=== PATIENT | male | born 1960 | race Caucasian/White ===

== ENCOUNTER 2019-12-21 15:48 | Emergency (ER) | payer BC ==
[2019-12-21 16:07] VITALS: TEMP 97
[2019-12-21] MEDS ORDERED: CHLORHEXIDINE GLUCONATE 4 % 15 ML UD TOP ONE (16:39)
[2019-12-21 16:42] VITALS: O2SAT 98
[2019-12-21] MEDS ORDERED: TETANUS,DIPHTHERIA,PERTUSSIS 1 EA SYG IM ONE (17:09)
--- NOTE | 2019-12-21 17:15 | ED.PDOC ---
History of Present Illness - General Chief Complaint: Laceration Stated Complaint: thumb laceration Time Seen by Provider: 12/21/19 17:12 Source: patient - History of Present Illness Initial Comments: 59-year-old male who presents with chief complaint of left thumb laceration following injury just prior to arrival. Patient states he was driving a metal post when he accidentally struck his thumb sustaining a flap-like laceration to the palmar aspect of the left thumb. He reports a superficial wound with minimal bleeding to the area. Reports 3/10 severity sharp pain without radiation to the area, worse with palpation and movement of the thumb, no medications taken for relief. He is unsure of the date of his last tetanus immunization. Denies weakness/numbness, swelling, color change. Denies any other injuries. Allergies/Adverse Reactions: Allergies NO KNOWN ALLERGY Allergy (Verified 12/21/19 16:07) Home Medications: Ambulatory Orders Cephalexin Monohydrate [Keflex] 500 mg PO BID 5 Days #10 cap 12/21/19 Review of Systems - Review of Systems Review of Systems: 12/21/19 17:17 as per HPI All other Systems: Reviewed and Negative Past Medical History (General) - Patient Medical History Hx Seizures: No Hx Stroke: No Hx Dementia: No Hx Asthma: No Hx of COPD: No Hx Cardiac Disorders: No Hx Congestive Heart Failure: No Hx Pacemaker: No Hx Hypertension: No Hx Thyroid Disease: No Hx Diabetes: No Hx Gastroesophageal Reflux: No Hx Renal Disease: No Hx of HIV: No Hx MRSA: No Surgical History: no surgical history - Vaccination History Hx Tetanus, Diphtheria Vaccination: No Hx Influenza Vaccination: No Hx Pneumococcal Vaccination: No Immunizations Up to Date: No - Social History Hx Tobacco Use: No Hx Alcohol Use: Yes - occasional Hx Substance Use: No Hx Substance Use Treatment: No Hx Depression: No Family Medical History - Family History Mother Family History: Unknown Physical Exam - Physical Exam General Appearance: Alert, Comfortable, No apparent distress, Obese Eye Exam: bilateral normal Ears, Nose, Throat: normal ENT inspection Neck: normal inspection Respiratory: lungs clear, normal breath sounds Cardiovascular/Chest: regular rate, rhythm, no edema Peripheral Pulses: radial,right: 2+, radial,left: 2+ Gastrointestinal/Abdominal: non tender, soft Back Exam: normal inspection Extremity: other - To the palmar aspect of the left thumb there is an approxi mately 2 cm flap-like superficial laceration which appears clean and hemostatic Neurologic: no motor/sensory deficits, alert Skin Exam: normal color, warm/dry Progress - Progress Progress: 12/21/19 17:18 -Left thumb superficial laceration -Cleansed copiously in the ED with Hibiclens and repaired at bedside with Dermabond without issue. The superficial flap-like nature of the laceration prohibited suture repair. -Tetanus immunization given -We will prescribe Keflex 500 mg p.o. twice daily for 5 days for prophylaxis against infection -Discharged home in good condition, return warnings discussed Ronald Lugo MD Billing #[id number] Procedures - Laceration/Wound Repair Left Finger Wound Length (cm): 2 Wound's Depth, Shape: flap Wound Explored: clean Betadine Prep?: No - Hibiclens Wound Repaired With: dermabond Departure - Departure Clinical Impression: Laceration of thumb Qualifiers: Encounter type: initial encounter Damage to nail status: without damage Foreign body presence: without foreign body Laterality: left Qualified Code(s): S61.012A - Laceration without foreign body of left thumb without damage to nail, initial encounter Time of Disposition: 17:13 Disposition: Discharge to Home or Self Care Condition: Good Departure Forms: ED Discharge - Pt. Copy, Patient Portal Self Enrollment Instructions: DI for Laceration Repair, Laceration Repair With Glue (DC) Diet: resume usual diet Activity: increase activity as tolerated Prescriptions: Cephalexin Monohydrate [Keflex] 500 mg PO BID 5 Days #10 cap Home Medications: Ambulatory Orders Cephalexin Monohydrate [Keflex] 500 mg PO BID 5 Days #10 cap 12/21/19 Additional Instructions: Keep the wound clean and dry for the next 24 to 36 hours. After that you may gently wash 1-2 times daily with warm soap and water and pat dry. Take the antibiotics as indicated in order to prevent infection. Return to the ED if you develop worsening redness/warmth/swelling at the wound site which may indicate infection. Otherwise follow-up with your primary care physician as scheduled or sooner as needed.
[2019-12-21 17:46] VITALS: BP 128/81
== END 2019-12-21 17:21 | disposition home or self-care (01) ==
LOC: ER 15:48
DX: S61.012A Laceration without foreign body of left thumb without damage to nail, initial encounter (principal); W22.8XXA Striking against or struck by other objects, initial encounter; Y92.9 Unspecified place or not applicable